=== PATIENT | female | born 1995 | race African-American/Black ===

== ENCOUNTER 2017-12-31 17:19 | Observation (INO) | payer MEDICAID ==
[~2017-12-31] VITALS: Ht 157.5 cm; Wt 92.5 kg
[~2017-12-31 17:19] MED LIST: ABIL5 PO; CITA10TA16 PO
[2017-12-31] MEDS ORDERED: PNV1TABL76 PO (17:35)
== END 2017-12-31 18:35 | disposition home or self-care (01) ==
LOC: L&D 17:19
PROVIDERS: ADMIT Specialist; ATTEND Specialist
DX: O26.893 Other specified pregnancy related conditions, third trimester (principal); N89.8 Other specified noninflammatory disorders of vagina; Z3A.37 37 weeks gestation of pregnancy
CPT/HCPCS: 99281; G0378

== ENCOUNTER 2019-10-04 06:46 | Emergency (ER) | payer MEDICAID ==
[~2019-10-04] VITALS: Ht 157.5 cm; Wt 76.0 kg
[~2019-10-04 06:46] MED LIST changes: -ABIL5 PO; -CITA10TA16 PO; +PNV1TABL76 PO
[2019-10-04] MEDS ORDERED: MAGNESIUM CITRATE 300ML SOLUTION PO ONE (09:00)
[2019-10-04 09:44] LABS: BASOPHILS % 0.7 % (0.0-2.0); EOSINOPHILS % 1.6 % (0.0-5.0); HEMATOCRIT. 30.3 % (36.0-48.0); HEMOGLOBIN. 9.7 g/dL (12.0-16.0); LYMPHOCYTES % 17.8 % (20.0-50.0); MEAN CORPUSCULAR HEMOGLOBIN 23.7 pg (28.0-32.0); MEAN CORPUSCULAR VOLUME 73.8 fL (81.0-99.0); MEAN PLATELET VOLUME 9.2 fl (7.4-10.4); MONOCYTES % 6.6 % (2.0-8.0); NEUTROPHILS % 73.3 % (40.0-76.0); PLATELET 300 x1000/uL (130-400); RED BLOOD CELL COUNT 4.11 mill/uL (4.2-5.4); RED CELL DISTRIBUTION WIDTH 19.6 % (11.6-14.6)
[2019-10-04 09:51] LABS: CHLORIDE 110 mEq/L (98-107)
[2019-10-04 10:00] VITALS: BP 142/80
[2019-10-04] MEDS ORDERED: MINERAL OIL ENEMA 133ML PR ONE (11:00)
== END 2019-10-04 11:39 | disposition left against medical advice (07) ==
LOC: ER 06:46
DX: O90.89 Other complications of the puerperium, not elsewhere classified (principal); K59.00 Constipation, unspecified; R10.32 Left lower quadrant pain
CPT/HCPCS: 36415; 74018; 80053; 85025; 99284

== ENCOUNTER 2020-05-01 04:11 | Emergency (ER) | payer MEDICAID ==
[2020-05-01] MEDS ORDERED: DEXTROSE 50% WATER 50ML SYRINGE IV ONE (04:45)
[2020-05-01] MEDS ORDERED: SODIUM CHLORIDE 0.9% 1,000 ML IV ONE (04:45)
[2020-05-01] MEDS ORDERED: LORAZEPAM 2MG/ML CPJ IV ONE (04:45)
[2020-05-01 04:53] LABS: BASOPHILS % 1.4 % (0.0-2.0); EOSINOPHILS % 0.9 % (0.0-5.0); HEMATOCRIT. 33.5 % (36.0-48.0); HEMOGLOBIN. 10.9 g/dL (12.0-16.0); MEAN CORPUSCULAR HEMOGLOBIN 25.2 pg (28.0-32.0); MEAN CORPUSCULAR VOLUME 77.4 fL (81.0-99.0); MEAN PLATELET VOLUME 8.4 fl (7.4-10.4); MONOCYTES % 5.3 % (2.0-8.0); NEUTROPHILS % 69.4 % (40.0-76.0); PLATELET 208 x1000/uL (130-400); RED BLOOD CELL COUNT 4.33 mill/uL (4.2-5.4); RED CELL DISTRIBUTION WIDTH 16.4 % (11.6-14.6)
[2020-05-01 04:56] LABS: CHLORIDE 110 mEq/L (98-107)
[2020-05-01 05:01] LABS: ETHANOL BLOOD 112 mg/dL
[2020-05-01 05:58] LABS: CLARITY URINE CLEAR (CLEAR); COLOR URINE YELLOW (YELLOW); KETONES URINE NEGATIVE (NEGATIVE); LEUKOCYTE ESTERASE URINE TRACE (NEGATIVE); NITRITE URINE NEGATIVE (NEGATIVE); OCCULT BLOOD URINE 3+ (NEGATIVE); PROTEIN URINE NEGATIVE (NEGATIVE); SPECIFIC GRAVITY URINE 1.012 (1.005-1.030); UROBILINOGEN URINE 0.2 E.U./dL (0.2-1.0)
[2020-05-01 06:18] LABS: *BARBITURATES SCREEN URINE NEGATIVE (NEGATIVE)
[2020-05-01 06:19] LABS: *AMPHETAMINES SCREEN URINE NEGATIVE (NEGATIVE); *BENZODIAZEPINES SCREEN URINE NEGATIVE (NEGATIVE); *COCAINE SCREEN URINE NEGATIVE (NEGATIVE); METHADONE URINE SCREEN NEGATIVE (NEGATIVE); OPIATES URINE SCREEN NEGATIVE (NEGATIVE)
[2020-05-01 06:20] LABS: CANNABINOID URINE SCREEN NEGATIVE (NEGATIVE); PHENCYCLIDINE URINE SCREEN NEGATIVE (NEGATIVE)
[2020-05-01 09:41] VITALS: BP 135/68
== END 2020-05-01 10:11 | disposition home or self-care (01) ==
LOC: ER 04:11
DX: G40.909 Epilepsy, unspecified, not intractable, without status epilepticus (principal); R32 Unspecified urinary incontinence; F10.129 Alcohol abuse with intoxication, unspecified; Y90.5 Blood alcohol level of 100-119 mg/100 ml
CPT/HCPCS: 36415; 70450; 80053; 80305; 80320; 81003; 81025; 82962; 84443; 85025; 96374; 96375; 99285; J2060; J7030; G0480